=== PATIENT | male | born 2000 | race Caucasian/White ===

== ENCOUNTER 2018-05-12 06:15 | Emergency (ER) | payer MEDICAID, OTHER ==
[~2018-05-12] VITALS: Ht 180.3 cm; Wt 102.2 kg
[~2018-05-12 06:15] MED LIST: ALBU18HF INHALATION; IBUP-1542 PO
[2018-05-12 06:25] VITALS: BP 146/67; PULSE 58; RESP 18; Ht 180.3 cm; Wt 102.2 kg
[2018-05-12] MEDS ORDERED: GLYC1SUP92 PR (06:41)
[2018-05-12] MEDS ORDERED: POLY17PO6 PO (06:41)
[2018-05-12] MEDS ORDERED: DOCU-144 PO (06:41)
[2018-05-12] MEDS ORDERED: GLYCERIN (ADULT) SUPP PR ONE (07:00)
--- NOTE | 2018-05-12 09:22 | ERD ---
ER Documentation Chief Complaint Chief Complaint diarrhea/feeling of bloat since last week after trying a new pa HPI 18-year-old male presenting with right-sided abdominal pain. Patient states that he had not had a bowel movement for 5 days. He took milk of magnesia last night and had a bowel movement this morning. He has had continued pain. No vomiting. No changes in urination. Has not taken medication today. Medical problems denies. NKDA. Surgical history denies. Social history denies ROS All systems reviewed and are negative except as per history of present illness. Medications Home Meds Active Scripts Glycerin* (Glycerin (Adult)*) 1 Each Supp.rect, 1 EACH SC DAILY PRN for CONSTIPATION, #30 SUPP.RECT Prov:LORNA PANIAGUA PA-C 05/12/18 Polyethylene Glycol* (Miralax*) 17 Gm Powd.pack, 17 GM PO DAILY, #7 Prov:LORNA PANIAGUA PA-C 05/12/18 Docusate Sodium* (Colace*) 100 Mg Capsule, 100 MG PO TID, #30 CAP Prov:LORNA PANIAGUA PA-C 05/12/18 Ibuprofen* (Motrin*) 600 Mg Tab, 600 MG PO Q8 for 10 Days, #30 TAB 0 Refills Prov:RAJAN WALKER PA-C 11/16/15 Albuterol Sulfate* (Ventolin HFA*) 18 Gm Hfa.aer.ad, 2 PUFF INHALATION Q6H for 30 Days, #1 INHALER 0 Refills Prov:RAJAN WALKER PA-C 11/16/15 Allergies Allergies: Coded Allergies: No Known Allergy (Unverified , 11/16/15) PMhx/Soc Medical and Surgical Hx: pt denies Medical Hx, pt denies Surgical Hx Hx Alcohol Use: No Hx Substance Use: No Hx Tobacco Use: No Smoking Status: Never smoker FmHx Family History: No diabetes, No coronary disease, No other Physical Exam Vitals Vital Signs Date Temp Pulse Resp B/P (MAP) Pulse Ox O2 O2 Flow FiO2 Time Delivery Rate 05/12/18 96.2 58 18 146/67 100 06:25 (93) Physical Exam GENERAL: The patient is well-appearing, well-nourished, in no acute distress HEENT: Atraumatic. Conjunctivae are pink. Pupils equal, round, and reactive to light. There is no scleral icterus. Tympanic membranes clear bilaterally. Oropharynx clear. NECK: C-spine is soft and supple. There is no meningismus. There is no cervical lymphadenopathy. CHEST: Clear to auscultation bilaterally. There are no rales, wheezes or rhonchi. HEART: Regular rate and rhythm. No murmurs, clicks, rubs or gallops. ABDOMEN:Soft, nontender and nondistended. Good bowel sounds. No rebound or guarding. No gross peritonitis. No gross organomegaly or masses. Results 24 hrs Current Medications Medications Dose Sig/Blake Start Time Status Last (Trade) Ordered Route PRN Stop Time Admin Dose Reason Admin Glycerin 1 supp ONCE ONCE 05/12/18 DC (Glycerin SC 07:00 (Adult)) 05/12/18 07:01 Procedures/MDM MDM: 18-year-old male presenting with abdominal pain. Patient is able to jump up and down with peritoneal signs. I have low suspicion for acute abdominal emergency. I do not feel that blood work or imaging is indicated. Patient is discharged with supportive medications. Patient recently has history of constipation and may have pain from gas. I do not feel that it vitals were concerning and exam is within normal limits. Patient is discharged with strict ER precautions and recommended to follow-up with primary care. All questions answered at discharge Departure Diagnosis: Primary Impression: Constipation Condition: Stable Patient Instructions: Constipation (Adult) Referrals: [facility] YOU HAVE RECEIVED A MEDICAL SCREENING EXAM AND THE RESULTS INDICATE THAT YOU DO NOT HAVE A CONDITION THAT REQUIRES URGENT TREATMENT IN THE EMERGENCY DEPARTMENT. FURTHER EVALUATION AND TREATMENT OF YOUR CONDITION CAN WAIT UNTIL YOU ARE SEEN IN YOUR DOCTORS OFFICE WITHIN THE NEXT 1-2 DAYS. IT IS YOUR RESPONSIBILITY TO MAKE AN APPOINTMENT FOR FOLOW-UP CARE. IF YOU HAVE A PRIMARY DOCTOR --you should call your primary doctor and schedule an appointment IF YOU DO NOT HAVE A PRIMARY DOCTOR YOU CAN CALL OUR PHYSICIAN REFERRAL HOTLINE AT IF YOU CAN NOT AFFORD TO SEE A PHYSICIAN YOU CAN CHOSE FROM THE FOLLOWING [facility] [id number] [facility]. [facility] [address] [facility] [address] [facility]. [facility] [address] [facility]. [facility] [address] [facility] [address] Additional Instructions: FOLLOW UP WITH YOUR PRIMARY CARE PHYSICIAN TOMORROW.Return to this facility if you are not improving as expected. LORNA PANIAGUA PA-C May 12, 2018 09:22
== END 2018-05-12 07:21 | disposition home or self-care (01) ==
LOC: FTE 06:15
DX: K59.00 Constipation, unspecified (principal)
CPT/HCPCS: Z7502; Z7610; 99282